=== PATIENT | male | born 1985 ===

== ENCOUNTER 2016-11-04 17:25 | Emergency (ER) | payer BC, MEDICARE, MEDICAID, OTHER ==
[2016-11-04 17:40] VITALS: BP 128/83
--- NOTE | 2016-11-04 17:49 | UC ---
Epistaxis Nasal HPI - HPI Summary HPI Summary: Crusted sore below L naris and "random runny noses" starting about a week ago. Feels more soreness and crusting in L nostril. Pt is concerned about catching illness from customers and work, also does not want to be at work with visible sores, as he is concerned patients will complain about him and sales will drop. - History of Current Complaint Chief Complaint: UCGeneralIllness Stated Complaint: COLD SORES Time Seen by Provider: 11/04/16 17:42 Hx Obtained From: Patient Onset/Duration: Gradual Onset, Lasting Days Timing: Constant Severity Initially: Mild Severity Currently: Mild Aggravating Factor(s): Nothing Alleviating Factor(s): Nothing Associated Signs And Symptoms: Positive: Negative - Allergies/Home Medications Allergies/Adverse Reactions: Allergies Allergy/AdvReac Type Severity Reaction Status Date / Time Methylphenidate Allergy See Comment Verified 11/04/16 17:41 [From Ritalin] cough medications Allergy See Comment Uncoded 11/04/16 17:41 PMH/Surg Hx/FS Hx/Imm Hx Endocrine History Of: Denies: Diabetes, Thyroid Disease Cardiovascular History Of: Denies: Cardiac Disorders, Hypertension Respiratory History Of: Reports: Bronchitis - ONE TIME Denies: COPD, Asthma GI/ History Of: Denies: Ulcer - Surgical History Surgical History: None - Family History Known Family History: Negative: Hypertension - Social History Occupation: Employed Part-time Alcohol Use: None Substance Use Type: None Smoking Status (MU): Heavy Every Day Tobacco Smoker Type: Cigarettes Review of Systems Constitutional: Negative Skin: Negative Eyes: Negative ENT: Other - sore under nose Respiratory: Negative Cardiovascular: Negative Gastrointestinal: Negative Genitourinary: Negative Motor: Negative Neurovascular: Negative Musculoskeletal: Negative Neurological: Negative Psychological: Negative All Other Systems Reviewed And Are Negative: Yes Physical Exam Triage Information Reviewed: Yes Appearance: Well-Appearing, No Pain Distress, Well-Nourished Vital Signs: Initial Vital Signs Temp 98.5 F 11/04/16 17:34 Pulse 87 11/04/16 17:34 Resp 18 11/04/16 17:34 BP 128/83 11/04/16 17:34 Pulse Ox 100 11/04/16 17:34 Vital Signs Reviewed: Yes Eye Exam: Normal Eyes: Positive: Conjunctiva Clear ENT: Positive: Pharynx normal, TMs normal, Other: - 0.5cm round scabbed lesion under L naris, yellow crusting in L naris. Negative: Nasal congestion, Nasal drainage Dental: Positive: Gross Decay/Caries @, Other: - marked gingivitis Neck exam: Normal Neck: Positive: Supple, Nontender, No Lymphadenopathy Respiratory Exam: Normal Respiratory: Positive: Chest non-tender, Lungs clear, Normal breath sounds, No respiratory distress, No accessory muscle use Cardiovascular Exam: Normal Cardiovascular: Positive: RRR, No Murmur Musculoskeletal Exam: Normal Neurological Exam: Normal Psychological Exam: Normal Skin Exam: Other - see above Epistaxis Nasal Course/Dx - Differential Dx/Diagnosis Provider Diagnoses: Impetigo Discharge - Discharge Plan Condition: Stable Disposition: HOME Prescriptions: Mupirocin 2% OINT* [Bactroban 2 % Oint*] 1 applic TOPICAL TID #1 tube Patient Education Materials: Impetigo (ED) Forms: *Work Release Referrals: No Primary Care Phys,NOPCP [Primary Care Provider] -
== END 2016-11-04 18:02 | disposition home or self-care (01) ==
LOC: UCEAST 17:25
DX: L01.00 Impetigo, unspecified (principal); Z88.8 Allergy status to other drugs, medicaments and biological substances; F17.210 Nicotine dependence, cigarettes, uncomplicated
CPT/HCPCS: 99212; G0463

== ENCOUNTER → 2017-07-28 09:08 | Emergency (ER) | payer BC, MEDICAID, MEDICARE, OTHER ==
[2017-07-28 09:14] VITALS: BP 110/89
--- NOTE | 2017-07-28 09:48 | ED ---
Throat Pain/Nasal Congestion - HPI Summary HPI Summary: 32M presents with decreased hearing in left ear since last night. He states that felt like something was stuck in his ear since last night. He tried to use a q tip this morning and it made it worst. He has history of cerumen impaction. He denies any fever, sinus congestion, sore throat, or cough. He has not medical conditions. He has no history of ear infections. - History of Current Complaint Chief Complaint: EDEarPain Time Seen by Provider: 07/28/17 09:14 - Allergies/Home Medications Allergies/Adverse Reactions: Allergies Allergy/AdvReac Type Severity Reaction Status Date / Time Methylphenidate Allergy See Comment Verified 11/04/16 17:41 [From Ritalin] cough medications Allergy See Comment Uncoded 11/04/16 17:41 PMH/Surg Hx/FS Hx/Imm Hx Endocrine/Hematology History: Denies: Hx Diabetes, Hx Thyroid Disease Cardiovascular History: Denies: Hx Hypertension Respiratory History: Reports: Other Respiratory Problems/Disorders - TB TOLD BY DOCTOR Denies: Hx Asthma, Hx Chronic Obstructive Pulmonary Disease (COPD) GI History: Denies: Hx Ulcer Infectious Disease History: No Infectious Disease History: Reports: Hx Hepatitis - hx hep b, Hx Tuberculosis - in the past Denies: Hx Human Immunodeficiency Virus (HIV), Traveled Outside the [place] in Last 30 Days - Family History Known Family History: Negative: Hypertension - Social History Alcohol Use: None Substance Use Type: Reports: None Smoking Status (MU): Heavy Every Day Tobacco Smoker Type: Cigarettes Review of Systems Negative: Fever Positive: Ear Ache Negative: Chest Pain Negative: Shortness Of Breath All Other Systems Reviewed And Are Negative: Yes Physical Exam Triage Information Reviewed: Yes Vital Signs On Initial Exam: Initial Vitals Temp Pulse Resp BP Pulse Ox 98.1 F 81 15 110/89 100 07/28/17 09:09 07/28/17 09:09 07/28/17 09:09 07/28/17 09:09 07/28/17 09:09 Vital Signs Reviewed: Yes Appearance: Positive: Well-Appearing Skin: Positive: Warm, Dry Head/Face: Positive: Normal Head/Face Inspection Eyes: Positive: Normal, EOMI, LISA, Conjunctiva Clear ENT: Positive: Pharynx normal, Other - left ear cerumen impaction Respiratory/Lung Sounds: Positive: Clear to Auscultation, Breath Sounds Present Cardiovascular: Positive: Normal, RRR Abdomen Description: Positive: Nontender, Soft Bowel Sounds: Positive: Present Musculoskeletal: Positive: Normal Neurological: Positive: Normal Psychiatric: Positive: Normal Diagnostics - Vital Signs Vital Signs Temp Pulse Resp BP Pulse Ox 07/28/17 09:09 98.1 F 81 15 110/89 100 - Laboratory Lab Statement: Any lab studies that have been ordered have been reviewed, and results considered in the medical decision making process. Re-Evaluation - Re-Evaluation First Eval Re-Evaluation Time: 09:53 Change: Improved Comment: after irrigation can hear. TM intact EENT Course/Dx - Course Course Of Treatment: 32M presents with decreased hearing in left ear since last night. He states that felt like something was stuck in his ear since last night. He tried to use a q tip this morning and it made it worst. He has history of cerumen impaction. He denies any fever, sinus congestion, sore throat , or cough. He has not medical conditions. He has no history of ear infections. on exam has left cerumen impaction seen. after irrigation normal TM. will discharge with debrox drops and primary referral. patient understand and agrees with plan. - Differential Diagnoses Differential Diagnoses: Cerumen Impaction, Otitis Externa, Otitis Media, Perforated TM - Diagnoses Provider Diagnoses: Cerumen impaction Discharge - Discharge Plan Condition: Good Disposition: HOME Prescriptions: Carbamide Peroxide 6.5% OTIC* [DEBROX 6.5% Otic*] 5 drop BOTH EARS BID #1 bottle Patient Education Materials: Cerumen Impaction (ED) Forms: *Work Release Referrals: [facility] [place] [facility] [Outside] Additional Instructions: Use debrox drops 5 drops twice a day for 4 days if ear wax in ears Establish care with primary to follow up Return to ED if develop any new or worsening symptoms
== END | disposition home or self-care (01) ==
LOC: ED 09:08
DX: H61.22 Impacted cerumen, left ear (principal); H92.02 Otalgia, left ear; F17.210 Nicotine dependence, cigarettes, uncomplicated
CPT/HCPCS: 99281

== ENCOUNTER 2018-02-26 20:37 | Emergency (ER) | payer OTHER ==
[2018-02-26 21:24] LABS: Urine Appearance Clear; Urine Blood Negative (Negative); Urine Color Yellow; Urine Ketones Negative (Negative); Urine Protein Negative (Negative); Urine Specific Gravity 1.016 (1.010-1.030); Urine Urobilinogen Positive (Negative)
[2018-02-26 21:28] LABS: ABS Basophils 0 10^3/ul (0-0.2); ABS Eosinophils 0.1 10^3/ul (0-0.6); ABS Lymphocytes 2.3 10^3/ul (1.0-4.8); ABS Monocytes 0.7 10^3/ul (0-0.8); ABS Neutrophils 4.1 10^3/ul (1.5-7.7); ABS Nucleated RBC 0 10^3/ul; Eosinophil % 1.4 % (0-6); Hematocrit 43 % (42-52); Lymphocyte % 32.6 % (25-47); Mean Corpuscular HGB Conc 33 g/dl (31-36); Mean Corpuscular Hemoglobin 26 pg (27-31); Mean Corpuscular Volume 78 fL (80-94); Mean Platelet Volume 8.6 um3 (7.4-10.4); Nucleated Red Blood Cells % 0.2; Platelet Count 171 10^3/ul (150-450); Red Blood Count 5.46 10^6/ul (4.00-5.40); Red Cell Distribution Width 15 % (10.5-15); White Blood Count 7.2 10^3/ul (3.5-10.8)
[2018-02-26 21:44] LABS: EGFR Non-African American 103.1 (>60)
[2018-02-27 01:30] VITALS: BP 125/90
--- NOTE | 2018-02-27 01:34 | ED ---
Tigre Sorto Angela scribdylan for Rosa Trotter MD on 02/26/18 at 2146 . Psychiatric Complaint - HPI Summary HPI Summary: This pt is a 33 y/o male presenting to [facility] for a mental health evaluation after feeling increased anxiety. Pt reports he needs medications "badly" for "anything that will subdue anxiety and insomnia." He states he has not been able to sleep well lately. Pt notes he needs a psychologist and psychiatrist to help him evaluate "stress and complication." Denies SI or HI thoughts/plan. He states he has "a lot of anxiety." Pt lives at home with his . He does have a job. - History Of Current Complaint Chief Complaint: EDMentalHealth Time Seen by Provider: 02/26/18 20:47 Hx Obtained From: Patient Onset/Duration: Lasting Days, Still Present Timing: Days Severity Currently: Severe Character: Anxious Aggravating Factor(s): Recent Stress Alleviating Factor(s): Nothing Associated Signs And Symptoms: Positive: Sleep Disturbance Has Suicidal: Denies: Thoughts, With A Plan Has Homicidal: Denies: Thoughts, With A Plan - Allergies/Home Medications Allergies/Adverse Reactions: Allergies Allergy/AdvReac Type Severity Reaction Status Date / Time No Known Allergies Allergy Verified 02/26/18 20:45 Home Medications: Home Medications NK [No Home Medications Reported] 02/26/18 [History Confirmed 02/26/18] PMH/Surg Hx/FS Hx/Imm Hx Endocrine/Hematology History: Denies: Hx Diabetes, Hx Thyroid Disease Cardiovascular History: Denies: Hx Hypertension Respiratory History: Reports: Other Respiratory Problems/Disorders - TB TOLD BY DOCTOR Denies: Hx Asthma, Hx Chronic Obstructive Pulmonary Disease (COPD) GI History: Denies: Hx Ulcer Psychiatric History: Reports: Hx Bipolar Disorder Infectious Disease History: No Infectious Disease History: Reports: Hx Hepatitis - hx hep b, Hx Tuberculosis - in the past Denies: Hx Human Immunodeficiency Virus (HIV), Traveled Outside the [place] in Last 30 Days - Family History Known Family History: Negative: Hypertension - Social History Alcohol Use: None Substance Use Type: Reports: None Smoking Status (MU): Heavy Every Day Tobacco Smoker Type: Cigarettes Review of Systems Constitutional: Other - sleep disturbance Negative: Fever, Chills Cardiovascular: Negative Respiratory: Negative Gastrointestinal: Negative Genitourinary: Negative Positive: Anxious. Negative: Other - SI or HI All Other Systems Reviewed And Are Negative: Yes Physical Exam - Summary Physical Exam Summary: VITAL SIGNS: Reviewed. GENERAL: Patient is a well-developed and nourished female who is lying comfortable in the stretcher. Patient is not in any acute respiratory distress. HEAD AND FACE: No signs of trauma. No ecchymosis, hematomas or skull depressions. No sinus tenderness. EYES: PERRLA, EOMI x 2, No injected conjunctiva, no nystagmus. EARS: Hearing grossly intact. Ear canals and tympanic membranes are within normal limits. MOUTH: Oropharynx within normal limits. NECK: Supple, trachea is midline, no adenopathy, no JVD, no carotid bruit, no c- spine tenderness, neck with full ROM. CHEST: Symmetric, no tenderness at palpation LUNGS: Clear to auscultation bilaterally. No wheezing or crackles. CVS: Regular rate and rhythm, S1 and S2 present, no murmurs or gallops appreciated. ABDOMEN: Soft, non-tender. No signs of distention. No rebound no guarding, and no masses palpated. Bowel sounds are normal. EXTREMITIES: FROM in all major joints, no edema, no cyanosis or clubbing. NEURO: Alert and oriented x 3. No acute neurological deficits. Speech is normal and follows commands. SKIN: Dry and warm Triage Information Reviewed: Yes Vital Signs On Initial Exam: Initial Vitals Temp Pulse Resp BP Pulse Ox 98.1 F 81 20 150/98 99 02/26/18 20:38 02/26/18 20:38 02/26/18 20:38 02/26/18 20:38 02/26/18 20:38 Vital Signs Reviewed: Yes Diagnostics - Vital Signs Vital Signs Temp Pulse Resp BP Pulse Ox 02/26/18 20:38 98.1 F 81 20 150/98 99 - Laboratory Lab Results: Lab Results 02/26/18 02/26/18 Range/Units 21:05 21:20 WBC 7.2 (3.5-10.8) 10^3/ul RBC 5.46 H (4.00-5.40) 10^6/ul Hgb 14.0 (14.0-18.0) g/dl Hct 43 (42-52) % MCV 78 L (80-94) fL MCH 26 L (27-31) pg MCHC 33 (31-36) g/dl RDW 15 (10.5-15) % Plt Count 171 (150-450) 10^3/ul MPV 8.6 (7.4-10.4) um3 Neut % (Auto) 56.4 (38-83) % Lymph % (Auto) 32.6 (25-47) % [place] % (Auto) 9.1 H (0-7) % Eos % (Auto) 1.4 (0-6) % Baso % (Auto) 0.5 (0-2) % Absolute Neuts (auto) 4.1 (1.5-7.7) 10^3/ul Absolute Lymphs (auto) 2.3 (1.0-4.8) 10^3/ul Absolute Monos (auto) 0.7 (0-0.8) 10^3/ul Absolute Eos (auto) 0.1 (0-0.6) 10^3/ul Absolute Basos (auto) 0 (0-0.2) 10^3/ul Absolute Nucleated RBC 0 10^3/ul Nucleated RBC % 0.2 Urine Color Yellow Urine Appearance Clear Urine pH 6.0 (5-9) Ur Specific [place] 1.016 (1.010-1.030) Urine Protein Negative (Negative) Urine Ketones Negative (Negative) Urine Blood Negative (Negative) Urine Nitrate Negative (Negative) Urine Bilirubin Negative (Negative) Urine Urobilinogen Positive A (Negative) Ur Leukocyte Esterase Negative (Negative) Urine Glucose Negative (Negative) Result Diagrams: 02/26/18 21:20 02/26/18 21:20 Lab Statement: Any lab studies that have been ordered have been reviewed, and results considered in the medical decision making process. Course/Dx - Course Assessment/Plan: Pt is a 33 y/o male who presents for a mental health evaluation after feeling increased anxiety. Pt reports he needs medications "badly" for "anything that will subdue anxiety and insomnia." He states he has not been able to sleep well lately. Pt notes he needs a psychologist and psychiatrist to help him evaluate "stress and complication." Denies SI or HI thoughts/plan. He states he has "a lot of anxiety.". Pt is medically cleared at 22:55. He is waiting for a mental health evaluation. Pt was evaluated by the mental health distribution operations manager and his case was reviewed by Dr. Bass, psychiatrist. Dr. Bass recommends discharge home with outpatient follow up from [facility]. - Differential Dx/Clinical Impression Provider Diagnosis: Anxiety Discharge - Sign-Out/Discharge Documenting (check all that apply): Discharge/Admit/Transfer - Discharge - Discharge Plan Condition: Stable Disposition: HOME Patient Education Materials: Mood Disorders (ED) Referrals: No Primary Care Phys,NOPCP [Primary Care Provider] - The documentation as recorded by the Tigre reyes Angela accurately reflects the service I personally performed and the decisions made by me, Rosa Trotter MD.
== END 2018-02-27 01:35 | disposition home or self-care (01) ==
LOC: ED 20:37
DX: F41.9 Anxiety disorder, unspecified (principal); F17.210 Nicotine dependence, cigarettes, uncomplicated; G47.00 Insomnia, unspecified
CPT/HCPCS: 36415; 80053; 80307; 80320; 80329; 81003; 84443; 85025; 99285; G0480